=== PATIENT | female | born 1965 | race Caucasian/White ===

== ENCOUNTER 2021-09-30 09:14 | Inpatient (IN) ==
[2021-09-30] MEDS ORDERED: diazePAM 10 MG/2 ML SYRINGE IM STA (09:34)
[2021-09-30 10:47] LABS: Bilirubin,Urine Negative (Negative); Blood,Urine Negative (Negative); Clarity,Urine Clear (Clear); Color,Urine Colorless (Yellow); Glucose,Urine (UA) >=1000 mg/dL (Normal); Ketones,Urine Trace mg/dL (Negative); Leukocyte Esterase,Urine Negative (Negative); Mucus,Urine Few per lpf (None-Few); Nitrite,Urine Negative (Negative); PH,Urine 5.5 pH Units (5.0-8.0); Protein,Urine Negative (Neg-Trace); RBC,Urine 0-3 per hpf (0-3); Specific Gravity,Urine 1.015 (1.010-1.025); Squamous Epithelial Cell,Urine Few per hpf (None-Few); Urobilinogen,Urine Normal (Normal)
[2021-09-30 10:47] LABS: Basophils # 0.1 K/mcL (0.0-0.2); Basophils % 0.6 %; Eosinophils # 0.2 K/mcL (0.0-0.6); Eosinophils % 1.6 %; Hematocrit 41.7 % (35.3-44.9); Hemoglobin 12.9 g/dL (11.5-15.4); Immature Granulocytes % 0.4 % (0-4); Lymphocytes # 2.6 K/mcL (0.6-4.6); Lymphocytes % 18.4 %; Mean Corpuscular HGB Conc 30.9 g/dL (31.6-35.5); Mean Corpuscular Hemoglobin 27.6 pg (28.0-33.3); Mean Corpuscular Volume 89.3 fL (83.0-100.0); Mean Platelet Volume 9.4 fL (9.4-12.4); Monocytes # 0.9 K/mcL (0.0-1.3); Monocytes % 6.1 %; Neutrophils # 10.2 K/mcL (1.6-8.9); Platelet Count 375 K/mcL (140-400); Red Blood Count 4.67 M/mcL (3.82-4.97); Red Cell Distribution Width 14.3 % (11.5-14.5); Segmented Neutrophils % 72.9 %
[2021-09-30 10:51] LABS: INR 0.9; Prothrombin Time 9.8 Seconds (9.4-12.1)
[2021-09-30 10:54] LABS: Activated Partial Thrombo Time 32.5 Seconds (26.0-36.0)
[2021-09-30 11:05] LABS: Alanine Aminotransferase 24 Units/L (7-52); Albumin 4.2 g/dL (3.5-5.7); Albumin/Globulin Ratio 1.3 (1.1-2.2); Alkaline Phosphatase 90 Units/L (34-104); Aspartate Amino Transferase 20 Units/L (13-39); BUN/Creatinine Ratio 20 (6-26); Bilirubin,Total 0.3 mg/dL (0.3-1.0); Blood Urea Nitrogen 22 mg/dL (6-20); Calcium 9.4 mg/dL (8.6-10.3); Carbon Dioxide 26 mEq/L (23-29); Chloride 100 mEq/L (98-107); Globulin 3.3 g/dL (2.4-3.5); Glucose 258 mg/dL (70-105); Osmolality,Calculated 296 (280-300); Potassium 3.6 mEq/L (3.5-5.1); Sodium 137 mEq/L (136-145); Total Protein 7.5 g/dL (6.4-8.9); eGFR For African Americans > 60 (> 60); eGFR For Non-African Americans 51 (> 60)
[2021-09-30] MEDS: 0.9 % Sodium Chloride 1,000 ML IVC SCH ×2 (11:07→21:47)
[2021-09-30] MEDS: *HR* HYDROmorphone (PF) 1 MG/ML SYRINGE IVP PRN (11:12)
[2021-09-30] MEDS ORDERED: Gadolinium Contrast Agent (WT Based) IV PRN ×2 (11:37→12:47)
[2021-09-30] MEDS ORDERED: Naloxone 0.4 MG/ML INJ IVP PRN (11:39)
[2021-09-30] MEDS ORDERED: Acetaminophen 325 MG TABLET PO PRN (11:39)
[2021-09-30] MEDS ORDERED: Ondansetron 4 MG/2 ML VIAL IVP PRN (11:39)
[2021-09-30] MEDS: *HR* OxyCODONE Immed Rel 5 MG TABLET PO PRN (14:49)
[2021-09-30] MEDS ORDERED: D5% in Water 1,000 ML IVC PRN (15:11)
[2021-09-30] MEDS ORDERED: Dextrose Gel 15 GM/37.5 ML TUBE PO PRN ×2 (15:11)
[2021-09-30] MEDS ORDERED: *HR* Dextrose 50 % in Water (Syg) 50 ML SYRINGE IVP PRN (15:11)
[2021-09-30] MEDS: Insulin LISPRO 300 UNITS/3 ML VIAL SUBQ SCH ×2 (17:07→20:13)
[2021-09-30] MEDS: *HR* HYDROcodone/Acet 5/325 mg TABLET PO PRN (20:19)
[2021-09-30] MEDS: *HR* Heparin 5,000 UNIT/ML VIAL SQ SCH (21:47)
[2021-10-01] MEDS: *HR* OxyCODONE Immed Rel 5 MG TABLET PO PRN ×2 (00:31→11:10)
[2021-10-01] MEDS: *HR* HYDROcodone/Acet 5/325 mg TABLET PO PRN (05:25)
[2021-10-01] MEDS: *HR* Heparin 5,000 UNIT/ML VIAL SQ SCH ×3 (05:26→20:39)
[2021-10-01 05:37] LABS: Basophils # 0.1 K/mcL (0.0-0.2); Basophils % 0.6 %; Eosinophils # 0.3 K/mcL (0.0-0.6); Eosinophils % 2.3 %; Hematocrit 38.9 % (35.3-44.9); Immature Granulocytes % 0.4 % (0-4); Lymphocytes # 3.2 K/mcL (0.6-4.6); Lymphocytes % 28.2 %; Mean Corpuscular HGB Conc 30.8 g/dL (31.6-35.5); Mean Corpuscular Hemoglobin 27.2 pg (28.0-33.3); Mean Corpuscular Volume 88.2 fL (83.0-100.0); Mean Platelet Volume 9.2 fL (9.4-12.4); Monocytes % 9.3 %; Neutrophils # 6.6 K/mcL (1.6-8.9); Platelet Count 346 K/mcL (140-400); Red Blood Count 4.41 M/mcL (3.82-4.97); Red Cell Distribution Width 14.3 % (11.5-14.5); Segmented Neutrophils % 59.2 %; White Blood Count 11.2 K/mcL (4.3-11.1)
[2021-10-01 05:38] LABS: INR 1.1; Prothrombin Time 12.2 Seconds (9.4-12.1)
[2021-10-01 05:51] LABS: BUN/Creatinine Ratio 15 (6-26); Blood Urea Nitrogen 13 mg/dL (6-20); Calcium 8.6 mg/dL (8.6-10.3); Carbon Dioxide 28 mEq/L (23-29); Chloride 101 mEq/L (98-107); Glucose 169 mg/dL (70-105); Magnesium 1.8 mg/dL (1.6-2.6); Osmolality,Calculated 290 (280-300); Potassium 3.4 mEq/L (3.5-5.1); Sodium 138 mEq/L (136-145); eGFR For African Americans > 60 (> 60); eGFR For Non-African Americans > 60 (> 60)
[2021-10-01] MEDS: 0.9 % Sodium Chloride 1,000 ML IVC SCH ×3 (05:55→22:44)
[2021-10-01] MEDS: Loratadine 10 MG TABLET PO SCH (08:49)
[2021-10-01] MEDS: Metoprolol XL (24 HR) Succ 25 MG TAB.ER.24H PO SCH (08:49)
[2021-10-01] MEDS: DilTIAZem CD (24hr) 300 MG CAP.ER.24H PO SCH (08:49)
[2021-10-01] MEDS: Cholecalciferol (D-3) 1,000 UNIT (25MCG) TABLET PO SCH (08:49)
[2021-10-01] MEDS: *HR* HYDROmorphone (PF) 1 MG/ML SYRINGE IVP PRN ×3 (08:50→22:45)
[2021-10-01] MEDS: Insulin LISPRO 300 UNITS/3 ML VIAL SUBQ SCH ×4 (08:52→19:31)
[2021-10-01] MEDS: *HR* LORazepam 0.5 MG TABLET PO PRN (17:35)
[2021-10-01 18:57] LABS: Adenovirus Not Detected (Not Detect); Bordetella Pertussis Not Detected (Not Detect); Chlamydophila pneumoniae Not Detected (Not Detect); Coronavirus 229E Not Detected (Not Detect); Coronavirus HKU1 Not Detected (Not Detect); Coronavirus NL63 Not Detected (Not Detect); Coronavirus OC43 Not Detected (Not Detect); Human Metapneumovirus Not Detected (Not Detect); Human Rhinovirus/Enterovirus Not Detected (Not Detect); Influenza A Subtype 2009 H1 Not Detected (Not Detect); Influenza B Not Detected (Not Detect); Mycoplasma pneumoniae Not Detected (Not Detect); Parainfluenza Virus 1 Not Detected (Not Detect); Parainfluenza Virus 2 Not Detected (Not Detect); Parainfluenza Virus 3 Not Detected (Not Detect); Parainfluenza Virus 4 Not Detected (Not Detect); Respiratory Syncytial Virus Not Detected (Not Detect); SARS-CoV-2 Not Detected (Not Detect)
[2021-10-02] MEDS: *HR* OxyCODONE Immed Rel 5 MG TABLET PO PRN ×2 (02:28→10:23)
[2021-10-02] MEDS: *HR* Heparin 5,000 UNIT/ML VIAL SQ SCH ×2 (05:58→13:09)
[2021-10-02] MEDS: 0.9 % Sodium Chloride 1,000 ML IVC SCH ×2 (07:35→16:00)
[2021-10-02] MEDS: Cholecalciferol (D-3) 1,000 UNIT (25MCG) TABLET PO SCH (07:36)
[2021-10-02] MEDS: Metoprolol XL (24 HR) Succ 25 MG TAB.ER.24H PO SCH (07:36)
[2021-10-02] MEDS: Loratadine 10 MG TABLET PO SCH (07:36)
[2021-10-02] MEDS: DilTIAZem CD (24hr) 300 MG CAP.ER.24H PO SCH (07:36)
[2021-10-02] MEDS: Insulin LISPRO 300 UNITS/3 ML VIAL SUBQ SCH ×3 (07:43→17:28)
[2021-10-02] MEDS: *HR* LORazepam 0.5 MG TABLET PO PRN (10:23)
[2021-10-02] MEDS: *HR* HYDROmorphone (PF) 1 MG/ML SYRINGE IVP PRN ×2 (11:13→19:18)
[2021-10-02 15:08] VITALS: BP 146/89; PULSE 63; TEMP 98; O2SAT 95
== END 2021-10-02 19:35 | disposition short-term general hospital (02) | DRG 534 ==
LOC: 4WAOSI 09:14 → EMEROOARM 09:14 → 4WAOSI 12:40
PROVIDERS: ADMIT Pharmacist; ATTEND Pharmacist